=== PATIENT | female | born 1940 | race Caucasian/White ===

== ENCOUNTER 2018-04-02 14:22 | Emergency (ER) | payer MEDICARE ==
[~2018-04-02] VITALS: Ht 160 cm; Wt 77.1 kg
[2018-04-02] MEDS ORDERED: ASPIRIN 81 MG TABLET CHEW ONE (14:56)
[2018-04-02] MEDS ORDERED: ASPIRIN 81 MG TABLET CHEW PO ONE (15:00)
[2018-04-02 15:06] LABS: BASOPHILS # (AUTO) 0.08 x10^3/uL (0-0.1); BASOPHILS % (AUTO) 1 % (0-1); EOSINOPHILS # (AUTO) 0.04 x10^3/uL (0-0.4); EOSINOPHILS % (AUTO) 1 % (1-7); LYMPHOCYTES # (AUTO) 1.93 x10^3/uL (1-3.4); LYMPHOCYTES % (AUTO) 27 % (22-44); MD NO; MEAN CORPUSCULAR HEMOGLOBIN 31.4 pg (27.0-34.8); MEAN CORPUSCULAR HGB CONC 33.5 g/dL (32.4-35.8); MEAN CORPUSCULAR VOLUME 93.6 fL (80-100); MEAN PLATELET VOLUME 8.4 fL (7.4-10.4); MONOCYTES # (AUTO) 0.44 x10^3/uL (0.2-0.8); MONOCYTES % (AUTO) 6 % (2-9); NEUTROPHILS # (AUTO) 4.56 x10^3/uL (1.8-6.8); NEUTROPHILS % (AUTO) 65 % (42-75); PLATELET COUNT 246 x10^3/uL (130-400); RED CELL DISTRIBUTION WIDTH 14.3 % (9.6-15.2)
[2018-04-02 15:16] LABS: ALBUMIN 4.3 g/dL (3.4-5.0); ANION GAP 10 mmol/L (5-15); CALCIUM 8.8 mg/dL (8.5-10.1); CHLORIDE 103 mmol/L (98-107)
[2018-04-02 15:21] LABS: CREATININE 0.84 mg/dL (0.55-1.02); TROPONIN I < 0.015 ng/mL (0.000-0.045)
[2018-04-02 15:32] VITALS: BP 179/101
[2018-04-02] MEDS ORDERED: LISI-170 PO (15:34)
[2018-04-02] MEDS ORDERED: FURO-93 PO (15:34)
== END 2018-04-02 16:46 | disposition home or self-care (01) ==
LOC: ED 16:30
DX: R06.00 Dyspnea, unspecified (principal); M25.512 Pain in left shoulder; M54.6 Pain in thoracic spine; I10 Essential (primary) hypertension
CPT/HCPCS: 36415; 80048; 82040; 83880; 84484; 85025; 85379; 99283

== ENCOUNTER → 2018-06-01 | Outpatient (CLI) | payer MEDICARE ==
[~2018-06-01] MED LIST: ASPI-496 PO; FURO-93 PO; LISI-170 PO; LOSA100T14 PO; MULT-6 PO
[2018-06-01 13:42] LABS: ANION GAP 6 mmol/L (5-15); CALCIUM 8.9 mg/dL (8.5-10.1); CHLORIDE 105 mmol/L (98-107)
[2018-06-01 13:48] LABS: CHOL/HDL RATIO 3.9; CHOLESTEROL, TOTAL 216 mg/dL (140-239); CREATININE 0.72 mg/dL (0.55-1.02); HDL CHOL % 26 % (28-40); HDL CHOLESTEROL (DIRECT) 56 mg/dL (40-60); LDL CHOLESTEROL,CALCULATED 139 mg/dL (54-169); LDL/HDL RATIO 2.5 (0.5-3.0); TRIGLYCERIDES 106 mg/dL (50-200); VLDL CHOLESTEROL 21 mg/dL (0-25)
== END | disposition home or self-care (01) ==
LOC: CFH 08:27
PROVIDERS: ATTEND Internal Medicine Cardiovascular Disease
DX: I10 Essential (primary) hypertension (principal); R07.89 Other chest pain; R94.31 Abnormal electrocardiogram [ECG] [EKG]
CPT/HCPCS: 36415; 80048; 80061

== ENCOUNTER 2019-08-02 07:45 | Outpatient (CLI) | payer MEDICARE ==
[2019-08-02] MEDS ORDERED: REGADENOSON 0.4 MG/5 ML SYRINGE ONE (12:21)
== END 2019-08-02 23:59 | disposition home or self-care (01) ==
LOC: CFH 07:45
PROVIDERS: ATTEND Internal Medicine Cardiovascular Disease
DX: I36.1 Nonrheumatic tricuspid (valve) insufficiency (principal); I44.7 Left bundle-branch block, unspecified
CPT/HCPCS: 78452; 93017; 93306; A9502; J2785

== ENCOUNTER → 2019-10-15 | Outpatient (CLI) | payer MEDICARE ==
[~2019-10-15] MED LIST changes: +OMNIPAQUE 350 MG/ML, 75ML BOTTLE ONE
== END | disposition home or self-care (01) ==
LOC: CFH 07:43
PROVIDERS: ATTEND Internal Medicine
DX: J84.9 Interstitial pulmonary disease, unspecified (principal); E04.1 Nontoxic single thyroid nodule; I31.3 Pericardial effusion (noninflammatory)
CPT/HCPCS: 71260; Q9967

== ENCOUNTER → 2020-03-17 | Outpatient (CLI) | payer MEDICARE ==
[~2020-03-17] MED LIST changes: -OMNIPAQUE 350 MG/ML, 75ML BOTTLE ONE
== END | disposition home or self-care (01) ==
LOC: RAD 08:36
PROVIDERS: ATTEND Internal Medicine
DX: K80.20 Calculus of gallbladder without cholecystitis without obstruction (principal); R94.5 Abnormal results of liver function studies
CPT/HCPCS: 76705

== ENCOUNTER 2020-04-23 08:38 | Day surgery (SDC) | payer MEDICARE ==
[2020-04-20 09:26] LABS: ANION GAP 8 mmol/L (5-15); CALCIUM 9.5 mg/dL (8.5-10.1); CHLORIDE 99 mmol/L (98-107)
[2020-04-20 09:28] LABS: CREATININE 0.87 mg/dL (0.55-1.02)
[~2020-04-23] VITALS: Ht 157.5 cm; Wt 66.0 kg
[~2020-04-23 08:38] MED LIST changes: +ATOR40TA78 PO; +CARV12.52 PO; +CEFD300C37 PO; +FURO20TA3 PO; +LOSA50TA14 PO; +MULTIVITAMIN; +SPIR25TA5 PO; +VITAMIN C; +VITAMIN D
[2020-04-23 09:08] VITALS: BP 167/110
[2020-04-23] MEDS ORDERED: INDOCYANINE GREEN 25 MG VIAL IV ONE (09:30)
[2020-04-23] MEDS ORDERED: CHLORHEXIDINE 15 ML UDC MM ONE (09:30)
[2020-04-23] MEDS ORDERED: LACTATED RINGERS 1,000 ML IV SCH (09:30)
[2020-04-23] MEDS ORDERED: EPINEPHRINE 1 MG/ML, 1ML ONE (10:19)
[2020-04-23] MEDS ORDERED: BUPIVACAINE/PF 0.5% ONE (10:19)
[2020-04-23] MEDS ORDERED: FENTANYL PF 250 MCG/5ML ONE (10:48)
[2020-04-23] MEDS ORDERED: PROPOFOL 50 ML ONE (10:49)
[2020-04-23] MEDS ORDERED: ROCURONIUM 10MG/ML,5ML ONE (10:53)
[2020-04-23] MEDS ORDERED: DEXAMETHASONE 4 MG/ML, 5ML ONE (10:53)
[2020-04-23] MEDS ORDERED: CEFAZOLIN 1,000 MG ONE (10:59)
[2020-04-23] MEDS ORDERED: BUPIVACAINE/EPI 0.5% 1:200K INFIL ONE (11:18)
[2020-04-23] MEDS ORDERED: DIPHENHYDRAMINE 50 MG/ML, 1ML IVPush PRN (11:30)
[2020-04-23] MEDS ORDERED: ACETAMINOPHEN 325 MG TABLET PO PRN (11:30)
[2020-04-23] MEDS ORDERED: hydrALAzine 20 MG/ML, 1ML IV PRN (11:30)
[2020-04-23] MEDS ORDERED: DIAZEPAM 5 MG/ML, 2ML IVPush PRN (11:30)
[2020-04-23] MEDS ORDERED: LABETALOL 5MG/ML, 20ML IV PRN (11:30)
[2020-04-23] MEDS ORDERED: MIDAZOLAM 1 MG/ML, 2ML IV PRN (11:30)
[2020-04-23] MEDS ORDERED: HYDROmorphone 1 MG/ML, 1ML INJ IVPush PRN (11:30)
[2020-04-23] MEDS ORDERED: OXYcodone 5 MG/5 ML ORAL.SOL UDC PO PRN (11:30)
[2020-04-23] MEDS ORDERED: EPHEDRINE 50 MG/ML, 1ML IVPush PRN (11:30)
[2020-04-23] MEDS ORDERED: ONDANSETRON 2MG/ML, 2ML IVPush PRN (11:30)
[2020-04-23] MEDS ORDERED: PROMETHAZINE 25 MG/ML, 1ML IVPush PRN (11:30)
[2020-04-23] MEDS ORDERED: ALBUTEROL SULFATE 2.5 MG/3 ML NPPB PRN (11:30)
[2020-04-23] MEDS ORDERED: MEPERIDINE/PF 25MG/0.5ML IVPush PRN (11:30)
[2020-04-23] MEDS ORDERED: SUGAMMADEX 200 MG/2 ML IVPush ONE (11:42)
[2020-04-23] MEDS ORDERED: ONDANSETRON 2MG/ML, 2ML ONE ×3 (11:42→12:17)
[2020-04-23] MEDS ORDERED: FENTANYL PF 100 MCG/2ML ONE (12:17)
[2020-04-23] MEDS ORDERED: OXYcodone 5 MG/5 ML ORAL.SOL UDC ONE (12:17)
[2020-04-23] MEDS ORDERED: ACETAMINOPHEN 650 MG/20.3 ML UDC ONE ×2 (12:17→12:25)
[2020-04-23] MEDS: FENTANYL PF 100 MCG/2ML IV PRN ×4 (12:20→12:48)
== END 2020-04-23 15:17 | disposition home or self-care (01) ==
LOC: OUT 08:38
PROVIDERS: ATTEND Surgery
DX: K80.12 Calculus of gallbladder with acute and chronic cholecystitis without obstruction (principal); E78.5 Hyperlipidemia, unspecified; M81.0 Age-related osteoporosis without current pathological fracture; I11.0 Hypertensive heart disease with heart failure; I50.30 Unspecified diastolic (congestive) heart failure; Z88.8 Allergy status to other drugs, medicaments and biological substances; Z88.2 Allergy status to sulfonamides; Z79.899 Other long term (current) drug therapy; Z72.89 Other problems related to lifestyle; Z87.891 Personal history of nicotine dependence; Z98.890 Other specified postprocedural states
CPT/HCPCS: 36415; 47563; 80048; 88304; J0171; J0690; J1100; J2405; J2704; J3010; J7120; U0003

== ENCOUNTER 2020-07-24 06:45 | Outpatient (CLI) | payer MEDICARE | END 2020-07-24 23:59 | disposition home or self-care (01) | LOC: CFH 06:45 → RAD 23:59 | PROVIDERS: ATTEND Registered Nurse | DX: I08.3 Combined rheumatic disorders of mitral, aortic and tricuspid valves (principal); I11.9 Hypertensive heart disease without heart failure; R07.89 Other chest pain; E78.2 Mixed hyperlipidemia; R06.02 Shortness of breath; R94.31 Abnormal electrocardiogram [ECG] [EKG] | CPT/HCPCS: 71046; 93306 ==

== ENCOUNTER → 2020-12-04 | Outpatient (CLI) | payer MEDICARE ==
[~2020-12-04] MED LIST changes: +REGADENOSON 0.4 MG/5 ML SYRINGE ONE
== END | disposition home or self-care (01) ==
LOC: CFH 07:04
PROVIDERS: ATTEND Internal Medicine Cardiovascular Disease
DX: R06.02 Shortness of breath (principal); R94.31 Abnormal electrocardiogram [ECG] [EKG]
CPT/HCPCS: 78452; 93017; A9502; J2785